=== PATIENT | male | born 1955 | race Caucasian/White ===

== ENCOUNTER 2018-10-23 08:05 | Outpatient (CLI) | payer OTHER ==
[2018-10-23] MEDS ORDERED: Gadobenate Dimeglumine 529 MG/1 ML (20ML VIAL) ONE (09:00)
--- NOTE | 2018-10-23 10:49 | RAD ---
FOUR VIEWS LUMBAR SPINE INCLUDING FLEXION AND EXTENSION VIEWS: DATE: 10/22/2018. HISTORY: Lumbar radiculopathy. History of laminectomy in 1985. FINDINGS: There are 5 [id number] lumbar-type vertebral bodies. There is mild right convex curvature of th e lumbar spine. Multilevel osteophytes are seen. There is narrowing of the intervertebral disk spac es at the L3-4, L4-5, and L5-S1 levels. The vertebral body heights are within normal limits. No fra cture or subluxation is identified. Facet degenerative changes are seen in the lower lumbar spine. There is no abnormal translational motion seen between the flexion and extension views. IMPRESSION: Multilevel degenerative changes in the lumbar spine with mild right convex curvature of the lumbar sp ine. POS: SANTIAGO
--- NOTE | 2018-10-23 11:04 | MRI ---
MRI LUMBAR SPINE WITH AND WITHOUT IV CONTRAST: 10/23/2018 HISTORY: Lumbar radiculopathy. History of laminectomy in 1985. The patient has been having low back pain for a couple months. COMPARISON: None available. FINDINGS: There is a large, oval-shaped, approximately 5 cm, increased T2-weighted signal intensity structures seen in the inferior pole, right kidney, which does not demonstrate enhancement on post contrast imag ing and is most compatible with a cyst. There is a smaller, approximately 2.3 cm increased T2-weight ed signal intensity lesion at the medial aspect, mid portion, right kidney, also demonstrating charac teristics more compatible with a cyst. A 1.6 cm increased T2-weighted signal intensity lesion is seen at the medial aspect of the mid portio n left kidney, also demonstrating characteristics compatible with a cyst, although there is significa nt motion on the post contrast images, which does limit adequate evaluation. The remainder of the retroperitoneal structures demonstrate a normal MRI appearance. The conus medullaris is normal in appearance and terminates at the level of the L1 vertebral body. Multilevel endplate degenerative changes are seen, greatest at the L3-L4 level. A few scattered Schm orl's nodes are seen within the endplates of the lower thoracic spine, as well as involving the L4 ve rtebral body. T12-L1: There is no disk bulge or disk herniation. The central spinal canal and neural foramina are patent. L1-L2: There is minimal disk osteophyte complex without significant narrowing of the central spinal canal or neural foramina. L2-L3: There is a mild broad-based disk osteophyte complex and mild facet degenerative changes. Fin dings result in mild narrowing of the central spinal canal. The neural foramina are patient. L3-L4: There is loss of intervertebral disk height with endplate degenerative changes. There is a b road-based disk osteophyte complex present. Facet degenerative changes are noted. There is mild gen eralized narrowing of the central spinal canal. There is moderate to severe left-sided neural forami nal narrowing. L4-L5: There is a broad-based disk osteophyte complex with moderate facet hypertrophic changes. Lig amentous thickening is present. There is severe right-sided neural foraminal narrowing with mild lef t-sided neural foraminal narrowing. There is mild increased T2-weighted signal intensity seen on the fluid-sensitive sequence, within the region of the pars interarticularis, on the left, and continuin g into the region of the facet joint, likely attributable to mild edema, which may be reactive from t he adjacent facet degenerative changes. L5-S1: There is loss of intervertebral disc height. Endplate degenerative changes are noted. There is a broad-based disk osteophyte complex present. Bilateral neural foraminal narrowing, greater on the left. There is mild enhancement adjacent to the facet joints, at the L5-S1 level, likely related to adjacen t reactive changes. No other areas of abnormal enhancement are appreciated. IMPRESSION: 1. Multilevel degenerative changes in the lumbar spine, greatest at the L3-L4 and L4-L5 levels, wher e there is moderate to severe left-sided neural foraminal narrowing at the L3-L4 level and severe rig ht-sided neural foraminal narrowing at the L4-L5 level. 2. Evidence of bilateral renal cysts. POS: SANTIAGO
== END 2018-10-23 08:06 | disposition home or self-care (01) ==
LOC: SCSMRI 08:05
PROVIDERS: ATTEND Neurological Surgery
DX: M47.26 Other spondylosis with radiculopathy, lumbar region (principal); M48.061 Spinal stenosis, lumbar region without neurogenic claudication; N28.1 Cyst of kidney, acquired
CPT/HCPCS: 72120; 72158; 82565; A9577

== ENCOUNTER 2019-05-08 08:44 | Outpatient (CLI) | payer OTHER ==
--- NOTE | 2019-05-08 10:42 | MRI ---
MRI CERVICAL SPINE WITHOUT CONTRAST: INDICATIONS: Neck pain. Right arm and shoulder pain. COMPARISON: MRI cervical spine dated 08/03/2016. FINDINGS: Moderate degenerative changes at all cervical levels noted. Disk space loss is prominent at C3-C4, C 4-C5, C5-C6, and C6-C7. Anterior osteophytes are prominent at all of these levels. Slight posterior listhesis at C4-C5 appears stable from the prior study. No significant disk bulge or spondylosis at C2-C3. At C3-C4 mild posterior disk bulge and spondylosis efface the anterior subarachnoid space. No signif icant cord impingement. No significant foraminal stenosis apparent. At C4-C5 there is a broad-based disk bulge with spondylitic change, which impinges on and mildly flat tens the anterior cord. This has a similar appearance to the prior exam from 2016. Bilateral forami nal narrowing due to facet and uncinate hypertrophy at this level. At C5-C6 mild broad-based disk bulge and spondylitic change abut the anterior cord. Right foraminal stenosis due to disk bulge and uncinate hypertrophy. At C6-C7 mild disk bulge and spondylosis efface the anterior subarachnoid space. Mild foraminal narr owing due to uncinate hypertrophy. At C7-T1 no significant disk bulge or spondylosis. The cervical cord signal is normal. IMPRESSION: Moderate degenerative disk changes in the cervical spine are most pronounced at the C3-C4, C4-C5, and C5-C6 levels. Posterior disk bulge and spondylosis impinge on the cord at C4-C5, as described above . Foraminal encroachment as noted above. The findings appear stable from 2016. POS: OFF
--- NOTE | 2019-05-08 11:02 | RAD ---
CERVICAL SPINE 3 VIEWS: Date: 05/08/19 INDICATION: Cervical radiculopathy. Lateral views were obtained in neutral, flexion, and extension positions. FINDINGS: Moderate degenerative changes are noted in the cervical spine. Loss of disc space is noted at C3-4, C 4-5, and C5-6. There is a posterolisthesis at C4-5 measured at 3-4 mm in the neutral position. This r educes slightly with flexion. Prominent osteophytes are seen anteriorly and laterally. IMPRESSION: Moderate degenerative changes of cervical spine. Posterolisthesis at C4-5 as described. POS: OFF
== END 2019-05-08 08:45 | disposition home or self-care (01) ==
LOC: SCSMRI 08:44
PROVIDERS: ATTEND Neurological Surgery
DX: M47.22 Other spondylosis with radiculopathy, cervical region (principal); M43.12 Spondylolisthesis, cervical region
CPT/HCPCS: 72040; 72141

== ENCOUNTER 2019-07-20 15:31 | Outpatient (CLI) | payer MEDICARE, OTHER ==
[2019-07-20 16:21] LABS: Hemoglobin 15.5 g/dL (14.0-18.0); Mean Corpuscular HGB CONC 34.7 g/dL (32.0-36.0); Mean Corpuscular Hemoglobin 31.6 pg (27.0-31.0); Mean Corpuscular Volume 91.2 fL (78.0-98.0); Mean Platelet Volume 6.8 fL (7.4-10.4); Platelet Count 314 thou/uL (130-400); RBC Distribution Width 11.8 % (11.5-14.5); Red Blood Cell (RBC) Count 4.91 mill/uL (4.70-6.10); White Blood Cell (WBC) Count 6.5 thou/uL (4.8-10.8)
[2019-07-20 16:31] LABS: PTT 29.6 SEC (22.9-36.1); Prothrombin Time 12.8 SEC (12.0-14.7)
== END 2019-07-20 15:32 | disposition home or self-care (01) ==
LOC: LABBT 15:31
PROVIDERS: ATTEND Neurological Surgery
DX: Z01.812 Encounter for preprocedural laboratory examination (principal); M50.221 Other cervical disc displacement at C4-C5 level
CPT/HCPCS: 85027; 85610; 85730

== ENCOUNTER 2019-07-30 05:39 | Day surgery (SDC) | payer MEDICARE, OTHER ==
[2019-07-20 15:39] VITALS: BMI 26.1
--- NOTE | 2019-07-25 06:31 | HP ---
REASON FOR ADMISSION: Cervical radiculopathy. 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 It has been going on for years, but getting worse recently. Pain is in the right neck, the right scapular region down the right arm, and there is some forearm pain from [id number]. In the past, he has had injections and therapy for this, but he has failed to alleviate his symptoms permanently. PAST MEDICAL HISTORY: Prostate disease, osteoarthritis, sinusitis, carpal tunnel. PAST SURGICAL HISTORY: Laminectomy, lumbar appendectomy. MEDICATIONS: Include: 1. Lunesta. 2. Flonase. 3. Cynthia. 4. Alprazolam. 5. Sertraline. 6. Tamsulosin. 7. Finasteride. 8. Celecoxib. ALLERGIES: NO KNOWN DRUG ALLERGIES. FAMILY HISTORY: His father at 82-year-old. His mother is alive at 88. Siblings and children are alive. He has two brothers, one son and two daughters. There is osteoarthritis and low back problems in the family. 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 He does not use illicit drugs. He occasionally drinks alcohol. REVIEW OF SYMPTOMS: There is some back and radiating leg pain. Otherwise, review of symptoms is negative. 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 His weight is 188 pounds. His cranial nerves are intact. There is mild wrist extensor and also finger extensor weakness on the right. There is a positive Spurling's to the right. Sensory alteration can be seen in the C6 greater than C7 distribution on the right. There is some mild C5 involvement. IMAGING STUDIES: On admission, imaging studies show intervertebral disk disease at C4-C5, C5-C6, and C6-C7 as well as other interspaces. The right-sided foraminal stenosis is most severe at C4-C5 and C5-C6, affecting the C5 and C6 nerve roots. It is less at C6-C7. Flexion-extension x-rays suggest mild instability at C4-C5 and C5-C6, and none at C6-C7. ASSESSMENT: C6 greater than C5 radiculopathy, right side without permanent response to injections or traction. Informed Consent: I discussed indications, risks, benefits, alternatives and expected outcomes from surgery. The risks discussed included, but were not limited to, bleeding, infection, CSF leak, nerve damage, weakness, swallowing trouble, feeding tube placement, tracheal injury, esophageal injury, vocal cord injury, spinal cord injury, incontinence, paralysis and later dependence, wheelchair dependent, stroke, loss of vision, carotid artery injury, jugular vein injury, hardware misplacement, cardiopulmonary complications of anesthesia, and . The long-term complications included, but were not limited to hardware failure, degeneration of surrounding discs and need for future surgery. He understands these risks and wants to proceed. 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 I think we have a good chance of alleviating the vast majority of his radiating arm pain. If other levels become involved in the future, arthroplasty or extension of an ACDF could be considered at that point. Job ID: [id number]
[2019-07-30] MEDS ORDERED: Fentanyl 250 MCG/5 ML VIAL ONE (06:28)
[2019-07-30] MEDS ORDERED: Sodium Chloride 0.9% 10 ML ONE (07:41)
[2019-07-30] MEDS ORDERED: Thrombin 5000 UNITS/5 ML VIAL ONE (07:41)
[2019-07-30] MEDS ORDERED: Fentanyl 100 MCG/2 ML VIAL ONE ×4 (10:31→13:17)
[2019-07-30] MEDS ORDERED: HYDROmorphone 2 MG/ML VIAL ONE (10:31)
[2019-07-30] MEDS ORDERED: Acetaminophen/Codeine 30-300mg Tablet PO PRN ×2 (10:41)
[2019-07-30] MEDS ORDERED: Acetaminophen 325 MG TAB PO PRN (10:41)
[2019-07-30] MEDS ORDERED: Morphine 4 MG/ML VIAL SLOW IVP PRN (10:41)
[2019-07-30] MEDS ORDERED: tiZANidine HCl 4 MG TAB PO PRN (10:41)
[2019-07-30] MEDS ORDERED: diphenhydrAMINE 50 MG/ML VIAL IVP PRN (10:41)
[2019-07-30] MEDS ORDERED: Cyclobenzaprine 10 MG TAB PO PRN (10:41)
[2019-07-30] MEDS ORDERED: Promethazine HCl 25 MG/ML VIAL IM PRN ×2 (10:41→10:51)
[2019-07-30] MEDS ORDERED: Morphine 2 MG/ML SYRINGE SLOW IVP PRN (10:41)
[2019-07-30] MEDS ORDERED: Ondansetron PF 4 MG/2 ML Vial IVP PRN (10:41)
[2019-07-30] MEDS ORDERED: Promethazine HCl 12.5 MG SUPP PR PRN (10:41)
[2019-07-30] MEDS ORDERED: HYDROcodone/Acetaminophen 7.5/325 mg Tablet PO PRN (10:41)
[2019-07-30] MEDS ORDERED: Promethazine 25 MG TAB PO PRN (10:41)
[2019-07-30] MEDS ORDERED: Acetaminophen 650 MG Suppository PR PRN (10:41)
[2019-07-30] MEDS ORDERED: traMADol HCl 50 MG TAB PO PRN ×2 (10:41)
[2019-07-30] MEDS ORDERED: diphenhydrAMINE 25 MG CAP PO PRN (10:41)
[2019-07-30] MEDS: Sodium Chloride 0.9% 1,000 ML IV SCH (10:45)
[2019-07-30] MEDS ORDERED: Scopolamine 1.5 mg/72 hour Patch TD SCH (10:45)
[2019-07-30] MEDS ORDERED: Promethazine HCl 25 MG/ML VIAL SLOW IVP PRN (10:51)
[2019-07-30] MEDS ORDERED: Ondansetron HCl/PF 4 MG/2 ML Vial IVP PRN (10:51)
[2019-07-30] MEDS ORDERED: Tamsulosin HCl 0.4 MG CAP ONE (11:02)
--- NOTE | 2019-07-30 12:23 | OP ---
DATE OF PROCEDURE: 07/30/2019 TERMINAL GAUGER SUPERVISOR: None. PREOPERATIVE INDICATION: Treat pain and prevent neurological deterioration. PREOPERATIVE DIAGNOSES: 1. Cervical intervertebral disk disease with radiculopathy, C4-C5 and C5-C6. 2. Cord compression at C5-C6. POSTOPERATIVE DIAGNOSES: 1. Cervical intervertebral disk disease with radiculopathy, C4-C5 and C5-C6. 2. Cord compression at C5-C6. PROCEDURES PERFORMED: 1. Anterior cervical diskectomy, intervertebral arthrodesis, placement of intervertebral biomechanical device, and anterior cervical plating, C4-C5, C5-C6. 2. Local morselized autograft. 3. Morselized allograft. 4. Operating microscope. PREOPERATIVE MEDICATION: Ancef 2 g IV. DRAIN NUMBER: Zero. DRAIN TYPE: None. DESCRIPTION OF PROCEDURE: The patient was brought to the operating room. General endotracheal anesthesia was induced. The patient was positioned on the operating table with his head supported by a gel-filled doughnut-shaped headrest and a lateral fluoro radiograph was used to plan our incision. The right side of the neck was sterilely prepped and draped. We opened with a 10 blade knife and controlled bleeding with bipolar cautery. We dissected sharply to the platysma and cut this muscle in line with our incision. We continued our dissection medial to the sternocleidomastoid and lateral to the trachea and esophagus until we arrived at the prevertebral space. We placed a marker at C4-C5 and took a lateral fluoro radiograph to confirm the levels upon which we were operating. We elevated the longus colli muscles and placed a self-retaining retractor beneath them. Distraction pins were placed at C4 and C6 and we distracted across both of the intervening interspaces. With curettes and rongeurs, we removed osteophytes and disks from the interspaces at C4-C5 and C5-C6 until we approached the posterior longitudinal ligament. Thereafter, the operative microscope was brought into the field. Under microscopic magnification using microsurgical techniques, we removed the remainder of the intervertebral disks. We accessed the ventral epidural space with a micro curette, and with this access point, we used Kerrison rongeurs to remove posterior osteophytes and posterior longitudinal ligament across the entire interspace from one nerve root to the other, decompressing all neural elements. We then turned our attention to arthrodesis. Using curettes, we prepared the endplates for grafting and we measured the height of each interspace to 6 mm with a bone rasp. Two separate 6-mm PEEK intervertebral grafts were brought into the field. Local morselized autograft obtained from our osteophytectomy (cleaned of all soft tissue attachments) was added to demineralized bone matrix to form our fusion substrate. The substrate was packed into the center of the intervertebral grafts and those were advanced into their respective interspaces under radiographic guidance to the appropriate depth. We removed our distraction pins and the operative microscope. A 28-mm anterior cervical plate was brought into the field. We drilled ship's pilot holes through the plate into the vertebral bodies at C4, C5, and C6 and we affixed the plate using 14 mm screws. Variable angle screws were used at C4 and C5 and fixed angle screws at C6. We engaged the locking mechanism over each of the 6 screws. AP and lateral fluoro radiographs confirmed adequate positioning of our instrumentation. We irrigated copiously with bacitracin irrigation. We closed the wound in anatomical layers. We applied a sterile dressing. This was a clean case, no contamination. Job ID: [id number]
[2019-07-30] MEDS ORDERED: tiZANidine HCl 4 MG TAB ONE (13:14)
[2019-07-30] MEDS ORDERED: Morphine 4 MG/ML VIAL ONE ×4 (13:39→17:14)
[2019-07-30] MEDS ORDERED: PHENYLEPHRINE-NS 100 MCG/ML 10 ML SYRINGE ONE (14:15)
[2019-07-30] MEDS ORDERED: Glycopyrrolate 0.2 MG/ML 5 ML SYRINGE ONE (14:15)
[2019-07-30] MEDS ORDERED: Lidocaine 1% PF 5 ML VIAL ONE (14:15)
[2019-07-30] MEDS ORDERED: Rocuronium Bromide 10 MG/ML (10ML VIAL) ONE (14:15)
[2019-07-30] MEDS ORDERED: ePHEDrine/0.9% NaCl/PF SYRINGE 50 mg/10 ml ONE (14:15)
[2019-07-30] MEDS ORDERED: PROPOFOL 200 MG/20 ML VIAL ONE (14:15)
[2019-07-30] MEDS ORDERED: Dexamethasone 20 MG/5 ML VIAL ONE (14:15)
[2019-07-30] MEDS ORDERED: Ondansetron PF 4 MG/2 ML Vial ONE (14:15)
[2019-07-30] MEDS ORDERED: HYDROcodone/Acetaminophen 7.5/325 mg Tablet ONE (16:24)
[2019-07-30] MEDS: CEFAZOLIN 2 GM in Premix Bag 1 BAG IVPB SCH ×2 (18:18→21:51)
[2019-07-30] MEDS ORDERED: Loratadine 10 MG TAB PO SCH (21:00)
[2019-07-30] MEDS ORDERED: CeleCOXIB 100 MG CAP PO SCH (21:00)
[2019-07-30] MEDS ORDERED: Tamsulosin HCl 0.4 MG CAP PO SCH (21:00)
[2019-07-30] MEDS ORDERED: Finasteride 5 MG TAB PO SCH (21:00)
[2019-07-31] MEDS: Sodium Chloride 0.9% 1,000 ML IV SCH ×2 (01:15→08:20)
[2019-07-31] MEDS: HYDROcodone/Acetaminophen 7.5/325 mg Tablet PO PRN ×3 (02:12→11:37)
[2019-07-31] MEDS ORDERED: Tamsulosin HCl 0.4 MG CAP PO SCH (06:00)
--- NOTE | 2019-07-31 06:57 | PRG ---
DATE OF SERVICE: 07/31/2019 Mr. Cullen is walking in the [place], when I met him this morning. He is feeling well. He ate dinner. He is going to eat breakfast. He is swallowing well, and he is anticipating discharge this morning. He is wearing his collar when he is up and out of bed, and he is not sleeping in it. the vitals have been stable and the neurological exam is reassuring. There is no impediment to discharge and that can be done today. Followup arrangements have been made and activity restrictions discussed. Wound care was discussed. Job ID: [id number] MTDD
[2019-07-31 08:48] VITALS: BP 128/68; TEMP 98
[2019-07-31] MEDS ORDERED: Fluticasone Propionate Nasal Spray 16 gm Bottle NASAL SCH (09:00)
== END 2019-07-31 12:47 | disposition home or self-care (01) ==
LOC: SDC 05:39 → SURG A 17:40 → SDC 07-31 12:47
PROVIDERS: ATTEND Neurological Surgery
PROC: 0RG20A0 Fusion of 2 or more Cervical Vertebral Joints with Interbody Fusion Device, Anterior Approach, Anterior Column, Open Approach (ICD-10-PCS; principal; 2019-07-30)
PROC: 0RT30ZZ Resection of Cervical Vertebral Disc, Open Approach (ICD-10-PCS; 2019-07-30)
DX: M50.121 Cervical disc disorder at C4-C5 level with radiculopathy (principal); M50.022 Cervical disc disorder at C5-C6 level with myelopathy; M48.02 Spinal stenosis, cervical region; N40.0 Benign prostatic hyperplasia without lower urinary tract symptoms; M19.90 Unspecified osteoarthritis, unspecified site; Z79.899 Other long term (current) drug therapy; Z98.890 Other specified postprocedural states
CPT/HCPCS: 20930; 20936; 22551; 22552; 22845; 22853 ×2; 76000; C1713 ×2; C1776; J0131; J0690; J1100; J1170; J2001; J2270; J2405; J2704; J3010; J3490

== ENCOUNTER 2019-10-05 13:00 | Outpatient (CLI) | payer BC ==
--- NOTE | 2019-10-05 14:44 | RAD ---
CERVICAL SPINE SERIES 3 VIEWS: Date: 10/05/2019 HISTORY: Follow-up neck surgery 2 months ago. COMPARISON: 05/08/2019 study. FINDINGS: Patient has undergone anterior cervical fusion with placement of plate and screws extending from C4 t o C6. Markers of disc implants are within the confines of the disc level. Marked disc narrowing is se en at C3-4 and C6-7. IMPRESSION: Postoperative changes of the spine. POS: SANTIAGO
== END 2019-10-05 13:01 | disposition home or self-care (01) ==
LOC: TBSIIMAG 13:00
PROVIDERS: ATTEND Neurological Surgery
DX: M50.20 Other cervical disc displacement, unspecified cervical region (principal); Z98.890 Other specified postprocedural states
CPT/HCPCS: 72040

== ENCOUNTER 2023-02-11 18:35 | Outpatient (CLI) | payer BC | END 2023-02-11 18:36 | disposition home or self-care (01) | LOC: SCSRAD 18:35 | PROVIDERS: ATTEND Nurse Practitioner Family | DX: S99.912A Unspecified injury of left ankle, initial encounter (principal); S99.922A Unspecified injury of left foot, initial encounter; S82.62XA Displaced fracture of lateral malleolus of left fibula, initial encounter for closed fracture ==